=== PATIENT | male | born 1965 | race Hispanic/Latino ===

== ENCOUNTER 2021-08-03 01:21 | Inpatient (IN) | payer OTHER ==
[~2021-08-03] VITALS: Ht 165.1 cm; Wt 102.5 kg
[2021-08-03 01:50] LABS: BASOPHILS % (AUTO) 0.5 % (0.0-5.0); EOSINOPHILS % (AUTO) 1.4 % (0.0-8.0); HEMATOCRIT 43.9 % (42-54); LYMPHOCYTES % (AUTO) 15.3 % (21.0-51.0); MEAN CORPUSCULAR HEMOGLOBIN 32.8 pg (27.0-33.0); MEAN CORPUSCULAR HGB CONC 34.6 g/dL (32.0-36.0); MEAN CORPUSCULAR VOLUME 94.6 fL (79-99); NEUTROPHILS % (AUTO) 73.5 % (40.0-77.0); PLATELET COUNT (AUTO) 207 K/uL (130-400); RED BLOOD CELL COUNT(AUTO) 4.64 MIL/uL (4.50-6.20); RED CELL DISTRIBUTION WIDTH 12.1 % (11.0-15.5); WHITE BLOOD COUNT (AUTO) 10.4 K/uL (4.8-10.8)
[2021-08-03 02:01] LABS: POTASSIUM 3.8 mmol/L (3.5-5.1)
[2021-08-03 02:05] LABS: ALBUMIN 3.7 g/dL (3.5-5.0); BILIRUBIN,TOTAL 0.4 mg/dL (0.2-1.0)
[2021-08-03] MEDS ORDERED: MORPHINE 4 MG SYG IM ONE (02:30)
[2021-08-03] MEDS ORDERED: IOHEXOL 350 MG/ML 100ML INFUS..BTL IV ONE (02:48)
[2021-08-03 03:11] LABS: APPEARANCE,URINE Clear (CLEAR); BILIRUBIN,URINE Negative (NEGATIVE); COLOR,URINE Yellow (YELLOW); GLUCOSE, URINE (UA) Negative (NEGATIVE); KETONES,URINE Negative (NEGATIVE); LEUKOCYTE ESTERASE ,URINE Negative (NEGATIVE); NITRATE,URINE Negative (NEGATIVE); OCCULT BLOOD,URINE Negative (NEGATIVE); PROTEIN,URINE Negative (NEGATIVE)
[2021-08-03] MEDS ORDERED: ZOSYN 3.375GM +NS 50ML IV ONE (04:00)
[2021-08-03] MEDS ORDERED: 0.9%NACL 1000ML 1,000 ML IV SCH (06:30)
[2021-08-03] MEDS ORDERED: ACETAMINOPHEN 325 MG TAB PO PRN ×2 (06:30)
[2021-08-03] MEDS ORDERED: ONDANSETRON 4MG INJ IV PRN (06:30)
[2021-08-03] MEDS ORDERED: ZOLPIDEM TARTRATE 5 MG TAB PO PRN (06:30)
[2021-08-03] MEDS ORDERED: MORPHINE 2 MG SYG IV PRN (06:30)
[2021-08-03 08:51] LABS: INR 1.05 (0.85-1.15); PROTHROMBIN TIME 11.4 SEC (9.6-11.6)
[2021-08-03 08:53] LABS: PARTIAL THROMBOPLASTIN TIME 32.2 SEC (26.3-35.5)
[2021-08-03] MEDS ORDERED: FAMOTIDINE 20MG VIAL IV SCH (09:00)
[2021-08-03 12:00] VITALS: BP 139/81
[2021-08-03] MEDS ORDERED: METR-172 PO (12:12)
[2021-08-03] MEDS ORDERED: LEVO500T90 PO (12:12)
[2021-08-03] MEDS ORDERED: DICY10CA13 PO (12:12)
[2021-08-03] MEDS ORDERED: ZOSYN 3.375GM+NS 50ML 50 ML IV SCH (13:00)
== END 2021-08-03 14:41 | disposition home or self-care (01) | DRG 392 ==
LOC: EDH 01:21 → EDHIP 01:22 → 3DH 09:40
PROVIDERS: ADMIT Hospitalist; ATTEND Hospitalist
DX: K57.20 Diverticulitis of large intestine with perforation and abscess without bleeding (principal); Z20.822 Contact with and (suspected) exposure to COVID-19; R73.9 Hyperglycemia, unspecified
CPT/HCPCS: 36415; 74177; 80053; 81003; 83690; 85025; 85610; 85651; 85730; 87635; C9803; G0378; J2270; J2543; J3490; J7030; Q9967